=== PATIENT | female | born 1995 | race Caucasian/White ===

== ENCOUNTER 2021-02-24 09:53 | Outpatient (REF) | payer OTHER, SELFPAY ==
--- NOTE | ~2021-02-24 | CT_ITS ---
EXAMINATION: CT ABDOMEN AND PELVIS WITH CONTRAST CLINICAL INFORMATION: Right lower quadrant pain COMPARISON: None TECHNIQUE: Multidetector volumetric images were obtained from the superior aspect of the liver through the pubic symphysis following administration 85 mL of Omnipaque 350 intravenous contrast. Sagittal and coronal reformatted images were obtained on the technologist's workstation. Oral contrast: Yes This CT examination was performed using dose optimization techniques as appropriate, variously including the following: *Automated exposure control *Adjustment of mA and/or kV according to patient size (this includes techniques or standardized protocols for targeted exams where dose is matched to indication/reason for exam; i.e. extremities or head) *Use of iterative reconstruction technique DLP: 367 mGy-cm FINDINGS: LUNG BASES: The visualized lung bases are unremarkable. LIVER, GALLBLADDER, AND BILIARY TREE: The liver is normal in size, shape, and attenuation. No focal hepatic lesion or biliary ductal dilatation is present. The gallbladder is unremarkable with no evidence of radiopaque gallstones, gallbladder wall thickening, or obvious pericholecystic inflammatory changes. PANCREAS: Unremarkable. SPLEEN: Unremarkable. ADRENAL GLANDS: Unremarkable. KIDNEYS AND URETERS: The kidneys are normal in size, shape, and attenuation. No hydronephrosis, hydroureter, or calculi seen. No perinephric stranding. BLADDER: Unremarkable. GASTROINTESTINAL TRACT: The small and large bowel are unremarkable. The appendix is unremarkable. ABDOMINAL WALL: No significant hernia is appreciated. LYMPH NODES: Normal. VASCULAR: Unremarkable. PELVIC VISCERA: There is a 2 cm right ovarian cyst. There may be a small amount of fluid seen in the pelvis adjacent to the right ovary. Uterus and left adnexa are unremarkable. OSSEOUS STRUCTURES: Unremarkable. CT/CT abdomen pelvis w con IMPRESSION: Normal-appearing appendix. 2 cm right ovarian cyst question small amount of fluid in the pelvis adjacent to the right ovary.
[2021-02-24] MEDS: iohexoL 350 MG/ML 100 ML INFUS..BTL IV (13:06)
== END 2021-02-24 09:54 | disposition home or self-care (01) ==
LOC: HO.CT 09:53
PROVIDERS: PCP Internal Medicine Geriatric Medicine; Visit Provider Internal Medicine Geriatric Medicine
DX: R10.31 Right lower quadrant pain (principal)
CPT/HCPCS: 74177; Q9967

== ENCOUNTER 2022-12-20 11:42 | Emergency (ER) | payer OTHER, SELFPAY ==
[2022-12-20 11:50] VITALS: BP 138/91; PULSE 70; RESP 20; TEMP 36.8; O2SAT 98; BMI 22.6
--- NOTE | 2022-12-20 11:52 | ED.GENADULT ---
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 where she felt lightheaded and mildly faint but did not faint, as well as feeling blurriness in both eyes but never lost vision, blurriness was worse in the right eye, there was no pain in the eye, no headache, she did not faint she was never confused she never had trouble balancing or walking, she had no chest pain no palpitations no shortness of breath no sweating, symptoms were not related to exertion no nausea no vomiting no abdominal pain no abnormal bleeding She has had similar episodes in the past which she believes were low blood sugar , and were relieved by sitting down and having something to eat or drink At school she did have something to eat and she felt better afterwards and right now has no symptoms except feeling like her right eye might be a little blurry <ALEXEY Haddad - Last Filed: 12/20/22 17:08> Related Data Allergies/adverse reactions: Allergies Allergy/AdvReac Type Severity Reaction Status Date / Time No Known Allergies Allergy Unverified 06/02/20 16:39 [No Known Allergies*] <ALEXEY Pinto Last Filed: 12/20/22 11:55> [facility] Social History Social History: Social History Advance Directives: No Advance Directives Information Provided: Yes <ALEXEY Pinto Last Filed: 12/20/22 11:55> Physical Exam ED Vital Signs: Vital Signs - 24 hr 12/20/22 11:50 12/20/22 16:45 Temperature 98.3 F 98.1 F Pulse Rate 70 71 Respiratory Rate 20 18 Blood Pressure 138/91 H 125/88 Pulse Oximetry 98 100 Oxygen Delivery Method Room Air Room Air BMI result Body Mass Index 22.6 <ALEXEY Pinto Last Filed: 12/20/22 11:55> Vital Signs - 24 hr 12/20/22 11:50 12/20/22 16:45 Temperature 98.3 F 98.1 F Pulse Rate 70 71 Respiratory Rate 20 18 Blood Pressure 138/91 H 125/88 Pulse Oximetry 98 100 Oxygen Delivery Method Room Air Room Air BMI result Body Mass Index 22.6 <ALEXEY Haddad - Last Filed: 12/20/22 17:08> Course Course Course Narrative: RME - 27 yo female presents to the ER for evaluation of blurred vision, tunnel vision, and 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 Thought it might be due to low blood sugar so she drank a juice. History of low blood sugar in the past, no hx DM. Feeling better overall but has some ongoing vision blurriness. 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 Thought it might be due to low blood sugar so she drank a juice. History of low blood sugar in the past, no hx DM. Feeling better overall but has some ongoing vision blurriness. Plan: POC and basic labs, visual acuity Well-appearing patient who was asymptomatic when I saw her and feeling fine and no longer dizzy, not complaining of any vision loss or blurriness now No acute EKG was a sinus bradycardia of a rate of 59, there was a 1st degree V block, HI interval was 222 milliseconds, QRS duration was normal QT was normal, no acute ischemic changes no ST change CBC had no anemia no acute abnormality Chemistry was normal with glucose of 102, initial point of care was 83 Visual acuity was 2020 bilaterally when I checked it myself Had a fully normal neurologic exam no symptoms of stroke or cardiac episode and patient is discharged with diagnosis of dizziness, feeling fine ambulating easily with normal balance <ALEXEY Haddad - Last Filed: 12/20/22 17:08> Medical Decision Making Lab Data MDM Lab Attestation statement: I reviewed the patient's lab results. <ALEXEY Haddad - Last Filed: 12/20/22 17:08> Result Diagrams: 12/20/22 12:04 12/20/22 12:04 <ALEXEY Pinto - Last Filed: 12/20/22 11:55> Labs: Lab Results 12/20/22 12/20/22 12/20/22 Range/Units 12:04 12:04 16:37 WBC 4.6 L (4.8-10.8) X10*3/uL RBC 4.07 L (4.20-5.50) X10*6/uL Hgb 13.2 (12.0-16.0) g/dl Hct 39.3 (37.0-47.0) % MCV 96.6 (80.0-98.0) fL MCH 32.4 (27.0-33.0) pg MCHC 33.6 (31.0-35.0) g/dl RDW 12.1 (11.0-16.0) % Plt Count 169 (160-400) X10*3/uL MPV 10.4 (9.4-12.3) fL Immature Gran % (Auto) 0.2 (0.0-0.4) % Neut % (Auto) 61.8 (45-73) % Lymph % (Auto) 29.2 (20-40) % [place] % (Auto) 7.8 (2-11) % Eos % (Auto) 0.6 (0-4) % Baso % (Auto) 0.4 (0-2) % Lymph # (Auto) 1.4 (1.2-4.9) X10*3/uL [place] # (Auto) 0.4 (0.1-1.2) X10*3/uL Eos # (Auto) 0.0 (0.0-0.4) X10*3/uL Baso # (Auto) 0.0 (0.0-0.2) X10*3/uL Abs Immat Gran (auto) 0.01 (0.00-0.03) X10*3/uL Absolute Neuts (auto) 2.9 (2.0-8.3) x10*3/uL Absolute Nucleated RBC 0.000 (0.0-0.012) X10*3/uL Nucleated RBC % (auto) 0.0 (0.0-0.2) /100WBC Sodium 140 (135-145) mmol/L Potassium 4.2 (3.3-5.1) mmol/L Chloride 105 (96-108) mmol/L Carbon Dioxide 25 (22-29) mmol/L Anion Gap 14 (12-20) BUN 10 (9-16) mg/dL Creatinine 0.70 (0.5-1.4) mg/dL Estim Creat Clear Calc 83.7 Estimated GFR > 60 POC Glucose 83 (60-115) mg/dL Random Glucose 102 (60-115) mg/dL Calcium 9.6 (8.4-10.2) mg/dL Magnesium 1.9 (1.6-2.6) mg/dL Total Bilirubin 0.8 (0.0-1.0) mg/dL Direct Bilirubin 0.2 (0.0-0.5) mg/dL AST 16 (5-31) U/L ALT 11 (0-31) U/L Alkaline Phosphatase 57 (39-117) U/L Total Protein 7.9 (6.5-8.0) g/dL Albumin 4.5 (3.5-5.0) g/dL <ALEXEY Pinto - Last Filed: 12/20/22 11:55> Lab Results 12/20/22 12/20/22 12/20/22 Range/Units 12:04 12:04 16:37 WBC 4.6 L (4.8-10.8) X10*3/uL RBC 4.07 L (4.20-5.50) X10*6/uL Hgb 13.2 (12.0-16.0) g/dl Hct 39.3 (37.0-47.0) % MCV 96.6 (80.0-98.0) fL MCH 32.4 (27.0-33.0) pg MCHC 33.6 (31.0-35.0) g/dl RDW 12.1 (11.0-16.0) % Plt Count 169 (160-400) X10*3/uL MPV 10.4 (9.4-12.3) fL Immature Gran % (Auto) 0.2 (0.0-0.4) % Neut % (Auto) 61.8 (45-73) % Lymph % (Auto) 29.2 (20-40) % [place] % (Auto) 7.8 (2-11) % Eos % (Auto) 0.6 (0-4) % Baso % (Auto) 0.4 (0-2) % Lymph # (Auto) 1.4 (1.2-4.9) X10*3/uL [place] # (Auto) 0.4 (0.1-1.2) X10*3/uL Eos # (Auto) 0.0 (0.0-0.4) X10*3/uL Baso # (Auto) 0.0 (0.0-0.2) X10*3/uL Abs Immat Gran (auto) 0.01 (0.00-0.03) X10*3/uL Absolute Neuts (auto) 2.9 (2.0-8.3) x10*3/uL Absolute Nucleated RBC 0.000 (0.0-0.012) X10*3/uL Nucleated RBC % (auto) 0.0 (0.0-0.2) /100WBC Sodium 140 (135-145) mmol/L Potassium 4.2 (3.3-5.1) mmol/L Chloride 105 (96-108) mmol/L Carbon Dioxide 25 (22-29) mmol/L Anion Gap 14 (12-20) BUN 10 (9-16) mg/dL Creatinine 0.70 (0.5-1.4) mg/dL Estim Creat Clear Calc 83.7 Estimated GFR > 60 POC Glucose 83 (60-115) mg/dL Random Glucose 102 (60-115) mg/dL Calcium 9.6 (8.4-10.2) mg/dL Magnesium 1.9 (1.6-2.6) mg/dL Total Bilirubin 0.8 (0.0-1.0) mg/dL Direct Bilirubin 0.2 (0.0-0.5) mg/dL AST 16 (5-31) U/L ALT 11 (0-31) U/L Alkaline Phosphatase 57 (39-117) U/L Total Protein 7.9 (6.5-8.0) g/dL Albumin 4.5 (3.5-5.0) g/dL <ALEXEY Haddad - Last Filed: 12/20/22 17:08> Discharge Plan Discharge Clinical Impression: Dizziness <ALEXEY Pinto - Last Filed: 12/20/22 11:55> Patient Disposition: Home, Self-Care <ALEXEY Pinto - Last Filed: 12/20/22 11:55> Additional Instructions: we are not sure what caused the episode of dizziness at school We did not find any evidence of a dangerous arrhythmia or heart problem, there was no evidence of stroke or neurologic problem Blood tests and glucose check were all normal Incidental finding was a 1st degree AV block which is a very common finding that usually produces no symptoms and I do not think it was related to today's event, but if dizziness continues your doctor may refer you to a boatswain mate and they may put a heart monitor on for a period of time It may also mean that they will check an EKG at your yearly physical to make sure that the 1st degree AV block is stable Return to the ER any time for any worse condition or any concerns <ALEXEY Pinto - Last Filed: 12/20/22 11:55>
[2022-12-20 12:11] LABS: MANUAL DIFF FLAG NO
[2022-12-20 12:13] LABS: Basophils Percent Auto 0.4 % (0-2); Eosinophils Percent Auto 0.6 % (0-4); Hematocrit 39.3 % (37.0-47.0); Hemoglobin 13.2 g/dl (12.0-16.0); Imm Gran Abs Auto 0.01 X10*3/uL (0.00-0.03); Imm Gran Pct Auto 0.2 % (0.0-0.4); Lymphocytes Absolute Auto 1.4 X10*3/uL (1.2-4.9); Lymphocytes Percent Auto 29.2 % (20-40); Mean Corpuscular HGB Conc 33.6 g/dl (31.0-35.0); Mean Corpuscular Hemoglobin 32.4 pg (27.0-33.0); Mean Corpuscular Volume 96.6 fL (80.0-98.0); Mean Platelet Volume 10.4 fL (9.4-12.3); Monocytes Absolute Auto 0.4 X10*3/uL (0.1-1.2); Monocytes Percent Auto 7.8 % (2-11); Neutrophils Absolute Auto 2.9 x10*3/uL (2.0-8.3); Neutrophils Percent Auto 61.8 % (45-73); Platelet Count 169 X10*3/uL (160-400); Red Blood Count 4.07 X10*6/uL (4.20-5.50); Red Cell Distribution Width 12.1 % (11.0-16.0); White Blood Count 4.6 X10*3/uL (4.8-10.8)
[2022-12-20 12:32] LABS: Alanine Aminotransferase 11 U/L (0-31); Albumin Level 4.5 g/dL (3.5-5.0); Alkaline Phosphatase 57 U/L (39-117); Anion Gap 14 (12-20); Aspartate Amino Transferase 16 U/L (5-31); Bilirubin Direct 0.2 mg/dL (0.0-0.5); Bilirubin Total 0.8 mg/dL (0.0-1.0); Blood Urea Nitrogen 10 mg/dL (9-16); Calcium 9.6 mg/dL (8.4-10.2); Carbon Dioxide 25 mmol/L (22-29); Chloride 105 mmol/L (96-108); Creatinine Clr Calc Pharmacy 83.7; Estimated Glomerular Filt Rate > 60; Glucose Random 102 mg/dL (60-115); Magnesium 1.9 mg/dL (1.6-2.6); Potassium 4.2 mmol/L (3.3-5.1); Sodium 140 mmol/L (135-145); Total Protein 7.9 g/dL (6.5-8.0)
--- NOTE | 2022-12-20 16:22 | ECG_ITS ---
Test Reason : dyzness Blood Pressure : / mmHG Vent. Rate : 059 BPM Atrial Rate : 059 BPM P-R Int : 222 ms QRS Dur : 086 ms QT Int : 428 ms P-R-T Axes : 044 078 058 degrees QTc Int : 423 ms Sinus bradycardia with 1st degree A-V block Otherwise normal ECG No previous ECGs available Referred By: Jospeh Malik Electronically Signed By:Zain Benson
[2022-12-20 16:42] LABS: Glucose, Whole Blood 83 mg/dL (60-115)
[2022-12-20 16:45] VITALS: BP 125/88; PULSE 71; RESP 18; TEMP 36.7; O2SAT 100
--- NOTE | 2022-12-20 17:21 | PC.NURSE ---
PT WAS SEEN AND DISCHARGED BY PROVIDER
== END 2022-12-20 17:10 | disposition home or self-care (01) ==
PROVIDERS: Physician Assistant; Emergency Provider Student in an Organized Health Care Education/Training Program; PCP Internal Medicine
DX: R42 Dizziness and giddiness (principal); R00.1 Bradycardia, unspecified; Z79.899 Other long term (current) drug therapy
CPT/HCPCS: 36415; 80048; 80076; 82947; 83735; 85025; 93005; 99283

== ENCOUNTER 2025-07-16 13:29 | Emergency (ER) | payer SELFPAY ==
[2025-07-16 13:40] VITALS: BP 126/83; PULSE 66; RESP 18; TEMP 36.7; O2SAT 98; BMI 22.2
--- NOTE | 2025-07-16 13:48 | ED_ITS ---
HPI - General Adult General Chief complaint: Nausea/Vomiting/Diarrhea Stated complaint: Not Feeling Well Time Seen by Provider: 07/16/25 16:20 History of Present Illness ED Provider: Demetrius CUEVAS narrative: The patient is a 29-year-old female who says that she has frequent episodes of pressure in her chest and nausea. She feels these symptoms mostly when she is working. 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 She thinks that she has been having these symptoms possibly as long as a year. During the summer when she was not working she did not have these symptoms. She is here today because her mother, with whom she lives, is concerned that she continues to have these symptoms. The patient's mother checked her blood pressure once a week and sometimes her blood pressures has been as high as 135/94. Today the blood pressure was elevated to this level and the mother encouraged her to come to the emergency room for evaluation. The patient is a nonsmoker. She is is on no medications. She has no known significant past medical history. She has had no fever, sweats, chills. No pain or swelling in her legs. No vomiting. Related Data Allergies Allergy/AdvReac Type Severity Reaction Status Date / Time No Known Allergies (No Known Allergy Verified 07/16/25 13:46 Allergies*) Review of Systems 2 Review of Systems: Yes all other systems are reviewed and are negative Physical Exam ED Vital Signs: Vital Signs - 24 hr 07/16/25 13:40 Temperature 98.1 F Pulse Rate 66 Respiratory Rate 18 Blood Pressure 126/83 Pulse Oximetry 98 Oxygen Delivery Method Room Air BMI result Body Mass Index 22.2 Const Other: The patient is a slim 29-year-old female who looks younger than her age. She does not appear ill or in distress at all. She is a very pleasant and cooperative. Orientation/consciousness: patient oriented x3 HENMT Other: The face is symmetrical. ?Mucous membranes moist. Eyes Other: Pupils are round equal, conjunctivae are clear, extraocular movements intact Neck Neck: Yes normal visual inspection and Yes full ROM Resp Effort & Inspection: normal respiratory effort Auscultation: clear to auscultation bilaterally Cardio Rate: regular rate Rhythm: regular rhythm Heart sounds: S1 normal heart sound present and S2 normal heart sound present GI Other: Abdomen is soft and nontender Skin Other: The skin is dry and unremarkable Neuro General: patient oriented x3, gait normal, tone normal, moves all extremities, no focal motor deficits and CN's II-XI intact bilaterally Extrem Other: There is no calf swelling or tenderness. No asymmetry. No peripheral edema. Course Course Course Narrative: This is a Rapid Medical Examination (RME) performed by Celso Sepulveda PA-C in triage. Full HPI, ROS, assessment and treatment plan per primary provider in the Main ED. Hx: 29 yo F here w/ nausea, no vomiting, x2-3 days. currently on her mestrual period. reports assoc chest pressure Plan: labs, ekg Medical Decision Making Medical Decision Making MDM Narrative: The patient is a very pleasant, very healthy looking 29-year-old who was awake and alert. She has been experiencing symptoms of chest pressure and nausea with a great deal of frequency for several months if not a year. 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 She says that she experiences her symptoms primarily when she is at work. She said she did not work over the summer and she did not have these symptoms. She lives with her mother. Her mother is chronically worried about the patient having these symptoms. The mother checked her blood pressure once a week. Sometimes the blood pressures run slightly elevated. Today the blood pressure was 135/94 and the mother encouraged her to come to the emergency room. The patient believes her symptoms are related to the stress of work. Clinically the patient looks entirely well. She has normal vital signs. She is PERC negative. She does not seem to have any risk factors for any significant premature cardiovascular process. She has a a normal EKG. She has a an unremarkable CBC. Comprehensive metabolic panel is unremarkable. Clinically the patient's description of her symptoms seems much more consistent with symptoms related to work-related stress around the than any acutely dangerous medical process. I think the patient may be discharged. She will be advised try to check her blood pressure on a day that she is feeling less stressed. Additionally, and more importantly, she should make a follow up appointment with her regular doctor's office (she has not been seen at your regular doctor's office for about 2 years). She was encouraged to try to exercise more or to participate in other activities that she may find enjoyable. If acutely worse she should return to the emergency room. Lab Data 07/16/25 14:02 07/16/25 14:02 Labs: Lab Results 07/16/25 Range/Units 14:02 WBC 5.3 (4.8-10.8) X10*3/uL RBC 4.05 L (4.20-5.50) X10*6/uL Hgb 13.2 (12.0-16.0) g/dl Hct 39.0 (37.0-47.0) % MCV 96.3 (80.0-98.0) fL MCH 32.6 (27.0-33.0) pg MCHC 33.8 (31.0-35.0) g/dl RDW 12.0 (11.0-16.0) % Plt Count 218 D (160-400) X10*3/uL MPV 10.5 (9.4-12.3) fL Immature Gran % (Auto) 0.2 (0.0-0.4) % Neut % (Auto) 66.3 (45-73) % Lymph % (Auto) 26.1 (20-40) % [place] % (Auto) 5.9 (2-11) % Eos % (Auto) 0.9 (0-4) % Baso % (Auto) 0.6 (0-2) % Lymph # (Auto) 1.4 (1.2-4.9) X10*3/uL [place] # (Auto) 0.3 (0.1-1.2) X10*3/uL Eos # (Auto) 0.1 (0.0-0.4) X10*3/uL Baso # (Auto) 0.0 (0.0-0.2) X10*3/uL Abs Immat Gran (auto) 0.01 (0.00-0.03) X10*3/uL Absolute Neuts (auto) 3.5 (2.0-8.3) x10*3/uL Absolute Nucleated RBC 0.000 (0.0-0.012) X10*3/uL Nucleated RBC % (auto) 0.0 (0.0-0.2) /100WBC Sodium 137 (135-145) mmol/L Potassium 4.0 (3.3-5.1) mmol/L Chloride 107 (96-108) mmol/L Carbon Dioxide 21 L (22-29) mmol/L Anion Gap 13 (12-20) BUN 10 (9-16) mg/dL Creatinine 0.57 (0.5-1.4) mg/dL Estim Creat Clear Calc 101.1 Estimated GFR > 60 Random Glucose 88 (60-115) mg/dL Calcium 9.2 (8.4-10.2) mg/dL Magnesium 2.1 (1.6-2.6) mg/dL Total Bilirubin 0.2 (0.0-1.0) mg/dL AST 22 (5-31) U/L ALT 12 (0-31) U/L Alkaline Phosphatase 57 (39-117) U/L Total Protein 8.2 H (6.5-8.0) g/dL Albumin 4.5 (3.5-5.0) g/dL Lipase 18 (8-78) U/L Beta HCG, Quant < 2 mIU/mL Discharge Plan Discharge Clinical Impression: Chest pressure Patient Disposition: Home, Self-Care Additional Instructions: From the point of view of any acutely dangerous medical problem your testing today is very reassuring. I think it is very likely that the symptoms you has been experiencing are related to the stressful nature of your career. Please make a follow up appointment with your regular doctor's office soon to discuss this further. I would recommend trying to check your blood pressure on a day when you were feeling less stressed. Increasing exercise may be helpful also. If at any point you feel significantly worse please return to the emergency room for further evaluation. Referrals: [facility] [Provider Group] Print Language: Barbadian
--- NOTE | 2025-07-16 13:48 | ECG_ITS ---
Test Reason : chest pain Blood Pressure : */* mmHG Vent. Rate : 67 BPM Atrial Rate : 67 BPM P-R Int : 192 ms QRS Dur : 84 ms QT Int : 392 ms P-R-T Axes : 87 78 62 degrees QTcB Int : 414 ms Normal sinus rhythm Normal ECG When compared with ECG of 20-Dec-2022 16:28, No significant changes seen Referred By: Savannah Sepulveda Electronically Signed By: RAMSEY PATTON
[2025-07-16 14:06] LABS: MANUAL DIFF FLAG NO
[2025-07-16 14:14] LABS: Hematocrit 39.0 % (37.0-47.0); Hemoglobin 13.2 g/dl (12.0-16.0); Imm Gran Abs Auto 0.01 X10*3/uL (0.00-0.03); Imm Gran Pct Auto 0.2 % (0.0-0.4); Lymphocytes Absolute Auto 1.4 X10*3/uL (1.2-4.9); Mean Corpuscular HGB Conc 33.8 g/dl (31.0-35.0); Mean Corpuscular Hemoglobin 32.6 pg (27.0-33.0); Mean Corpuscular Volume 96.3 fL (80.0-98.0); NRBC Abs Auto 0.000 X10*3/uL (0.0-0.012); NRBC Pct Auto 0.0 /100WBC (0.0-0.2); Platelet Count 218 X10*3/uL (160-400); Red Blood Count 4.05 X10*6/uL (4.20-5.50); White Blood Count 5.3 X10*3/uL (4.8-10.8)
[2025-07-16 14:23] LABS: Alanine Aminotransferase 12 U/L (0-31); Albumin Level 4.5 g/dL (3.5-5.0); Alkaline Phosphatase 57 U/L (39-117); Anion Gap 13 (12-20); Aspartate Amino Transferase 22 U/L (5-31); Blood Urea Nitrogen 10 mg/dL (9-16); Calcium 9.2 mg/dL (8.4-10.2); Carbon Dioxide 21 mmol/L (22-29); Chloride 107 mmol/L (96-108); Creatinine Clr Calc Pharmacy 101.1; Estimated Glomerular Filt Rate > 60; Lipase 18 U/L (8-78); Magnesium 2.1 mg/dL (1.6-2.6); Potassium 4.0 mmol/L (3.3-5.1); Sodium 137 mmol/L (135-145); Total Protein 8.2 g/dL (6.5-8.0)
--- OUTSIDE RECORDS SUMMARY | 2025-07-16 16:41 | XMS_ITS | Clinical Summary ---
Author Organization [employer] Address [address] [place] [address] [address] [place] [address] Care Team Providers Care Dough Scaler And Mixer Name Role Phone Lillian Bucio MD Primary Care Provide r Allergies No known active allergies Medications albuterol 108 (90 Base) MCG/ACT inhalerIndication s:Mild intermittent asthma, unspecified whether complicated Inhale 2 puffs every 6 (six) hours if needed for wheezing. 18 g 04/09/2024 Active Active Problems Problem Noted Date Diagnosed Date Health care maintenance 04/09/2024 Assessment & Plan (04/09/2024 4:08 PM EDT): Patient will be schedule for PAP smear First degree AV block 04/09/2024 Assessment & Plan (04/09/2024 4:07 PM EDT): Patient referred to cardiology I printed for her the information to do her appointment, I encourage her to do it as soon as possible Syncope 04/09/2024 Assessment & Plan (04/09/2024 4:08 PM EDT): Patient referred to cardiology Labs ordered, patient will be contacted with results Other fatigue 01/11/2023 Assessment & Plan (01/11/2023 11:38 AM EDT): Im suspecting this episode was more likely related to her migraines, unlikely cardiac issue I will order blood work including TSH, patient to be contacted with results Referral to cardiology and neurology Blurred vision 01/11/2023 Bradycardia 01/11/2023 Migraine with aura 01/10/2023 Moderate persistent asthma without complication 01/10/2023 Asthma 07/16/2012 Assessment & Plan (04/09/2024 4:06 PM EDT): Patient educated to avoid asthma triggers Immunizations Immunization Administration Dates Next Due DTaP 12/08/2002, 9,07/18/1998,04/11,02/01/1998 HPV, Quadrivalent 05/22/2011,04/19/2010,02/01/20 09 Hep A, ped/adol, 2 dose 04/19/2010,01/31/2007 Hep B, Adolescent or Pediatric 07/18/1998,1997,1997 Hib (HbOC) 03/16/1999, 8,04/11/1998,02/01 IPV 12/08/2002, 9,04/11/1998,02/01 Influenza injectable quadriv alent preservative free 08/12/2019 Influenza, Split (incl. mari fied surface antigen) 07/14/2013,07/16/2012 MMR 12/08/2002,12/29/1998 Meningococcal [id number] [id number] 07/16/2012 Pneumococcal Conjugate PCV 20 04/09/2024 Tdap 04/09/2024,08/29/2011 Varicella 05/26/2007,12/29/1998 Social History Tobacco Use Types Packs/Day Years Used Date Smoking Tobacco: Never Passive Smoke Exposure: Never Smokeless Tobacco: Never Tobacco Cessation:Counseling Given: Not Answered Alcohol Answer Date Recorded Frequency of Alcohol Consumption Not on file 04/09/2024 Average Number of Drinks Not on file 024 Frequency of Binge Drinking Not on file 03/17 Score 0 04/09/2024 Depression Answer Date Recorded Patient Health Questionnaire-9 Score 0 04/09/2024 Patient Health Questionnaire-9 Score 0 04/09/2024 Last PHQ-9: Questionnaire Data Not on file 0 04/09/2024 Housing Stability Answer Date Recorded What is your housing situation today? I have ninfa ring 04/09/[address] you li ve. Do you have problems with any of the following? None of the above 04/09/2024 Food Insecurity Answer Date Recorded Within the past 12 months, y ou worried that your food would run out before you got money to buy more: Never True 04/09/2024 Within the past 12 months,th e food you bought just didn't last and you didn't have enough money to get more: Never True Transportation Answer Date Recorded In the past 12 months, has l ack of transportation kept you from medical appts, meetings, work or from getting things needed for daily living? No 04/09/2024 Utilities Answer Date Recorded In the past 12 months, has t he electric, gas, oil or water company threatened to shut off services in your home? No 04/09/2024 Depression Answer Date Recorded Patient Health Questionnaire-2 Score 0 04/09/2024 Internet Access Answer Date Recorded Internet Access Q1 No 05/18/2024 Internet Access Q2 I do not want or need it 10/2023 Comments Unknown Sex and Gender Information Value Date Recorded Sex Assigned at Female 07/16/2022 10:15 AM EDT Legal Sex Female 10:15 AM EDT Gender Identity Female 07/16/2022 10:15 AM EDT Sexual Orientation Straight 07/16/2022 10 :15 AM EDT Last Filed Vital Signs Vital Sign Reading Time Taken Comments Blood Pressure 112/81 04/09/2024 1:09 PM EDT Pulse 74 04/09/2024 1:09 PM EDT Temperature 36.6 C (97.8 F) 04/09/2024 1:09 PM EDT Respiratory Rate 18 04/09/2024 1:09 PM EDT Oxygen Saturation 93% 04/09/2024 1:09 PM EDT Inhaled Oxygen Concentration - - Weight 54.2 kg (119 lb 6.4 oz) 04/09/2024 1:09 P M EDT Height 149.9 cm (4' 11 ) 04/09/2024 1:09 PM EDT Body Mass Index 24.12 04/09/2024 1:09 PM EDT Plan of Treatment Health Maintenance Due Date Last Done Comments HIV Screening 1997 Disability Screening 1997 Alcohol/Substance Use Screening 2009 Family Planning (PISQ) 2012 Hepatitis C Screening 12/06/2015 Pap Smear 2018 Depression Screening 04/09/2025 04/09/2024, 04/09/20 24 SDOH Screening 04/09/2025 04/09/2024 Tobacco Screening 04/09/2025 04/09/2024 COVID-19 Vaccine (3 - season) 2025 01/19/2021, 12/22/2020 Influenza Vaccine (#1) 2025 9, 07/14/2013, 07/16/2012 DTaP/Tdap/Td Vaccines (8 - Td or Tdap) 04/09/2034 04/09/2024, 08/29/2011, 12/08/2002, Additional history exists Zoster Vaccines (1 of 2) 12/06/2047 RSV Patients and Patients Aged 60 years or older (1 - 1-dose 75+ series) 2072 Hepatitis B Vaccines Completed 07/18/1998, 01/04/1998, 1997 HIB Vaccines Completed 03/16/1999, 10/1997, 04/11/1998, Additional history exists IPV Vaccines Completed 12/08/2002, 12/15, 04/11/1998, Additional history exists Hepatitis A Vaccines Completed 04/19/2010, 02/01/20 07 HPV Vaccines Completed 05/22/2011, 12/2009, 01/31/2009 Meningococcal Vaccine Aged Out 07/16/2012 No franck miles eligible based on patient's age to complete this topic Pneumococcal Vaccine: Pediatrics (0 to 5 Years) and At-Risk Patients (6 to 49) Years Completed 04/09/2024 Meningococcal B Vaccine Aged Out No l onger eligible based on patient's age to complete this topic RSV under 20 months Aged Out No longe r eligible based on patient's age to complete this topic Rotavirus Vaccines Aged Out No longer eligible based on patient's age to complete this topic Care Teams Dough Scaler And Mixer Relationship Specialty Start Date End Date Lillian Bucio MD [address] [place] [id number] PCP - General Family Medicine 10/24/20
[2025-07-16 16:50] VITALS: BP 124/78; PULSE 64; RESP 16; TEMP 36.6; O2SAT 98
[2025-07-16 16:55] VITALS: BP 124/78; PULSE 64; RESP 16; TEMP 36.6; O2SAT 98
[2025-07-16 17:12] LABS: Thyroid Stimulating Hormone 1.43 uIU/mL (0.32-4.0)
== END 2025-07-16 16:55 | disposition home or self-care (01) ==
PROVIDERS: Physician Assistant Medical; Emergency Provider Emergency Medicine; PCP Internal Medicine
DX: R07.89 Other chest pain (principal); R11.0 Nausea; R03.0 Elevated blood-pressure reading, without diagnosis of hypertension
CPT/HCPCS: 36415; 80053; 83690; 83735; 84443; 84702; 85025; 93005; 99283; 99284

== ENCOUNTER → 2025-07-16 13:48 | Outpatient (BNV) | payer SELFPAY | PROVIDERS: Emergency Provider Emergency Medicine; PCP Internal Medicine; Visit Provider Internal Medicine | DX: R07.9 Chest pain, unspecified (principal) | CPT/HCPCS: 93010 ==